=== PATIENT | male | born 1970 | race Caucasian/White ===

== ENCOUNTER → 2017-05-12 | Outpatient (CLI) | payer BC ==
--- NOTE | 2017-05-12 11:35 | EST ---
EXERCISE STRESS DATE OF SERVICE: 05/12/17 AGE: 46 SEX: Male HT: 6' 2" WT: 187 lbs PROTOCOL: Hieu STAGE: IV DURATION OF EXERCISE: 10:30 minutes HEART RATE REST: 64 BLOOD PRESSURE REST: 123/72 MAXIMUM HEART RATE ACHIEVED: 166 MAXIMUM BLOOD PRESSURE: 177/75 85% MPHR: 150 100% MPHR: 176 METS: 12.1 INDICATIONS: Chest pain, dizziness. CLINICAL INFORMATION: Chest pain. Baseline EKG shows sinus rhythm, normal axis, normal intervals. The patient exercised on Hieu protocol for a total of 10 and one half minutes achieving 12 METS, 94% of predicted maximum heart rate without chest pain or diagnostic ST-segment depression. CONCLUSIONS: 1. Excellent exercise tolerance. 2. Negative stress test by EKG criteria. MMODL / IJN: [id number] /
--- NOTE | 2017-05-12 11:46 | US ---
EXAMINATION TYPE: US carotid duplex BILAT DATE OF EXAM: 05/12/2017 COMPARISON: NONE CLINICAL HISTORY: E78.2 Mixed hyperlipidemia, R55 Syncope and collapse. EXAM MEASUREMENTS: RIGHT: Peak Systolic Velocity (PSV) cm/sec ----- Right CCA: 102.7 ----- Right ICA: 93.0 ----- Right ECA: 125.4 ICA/CCA ratio: 0.9 RIGHT: End Diastole cm/sec ----- Right CCA: 31.7 ----- Right ICA: 42.4 ----- Right ECA: 17.4 LEFT: Peak Systolic Velocity (PSV) cm/sec ----- Left CCA: 122.1 ----- Left ICA: 82.7 ----- Left ECA: 75.9 ICA/CCA ratio: 0.7 LEFT: End Diastole cm/sec ----- Left CCA: 36.5 ----- Left ICA: 34.8 ----- Left ECA: 17.8 VERTEBRALS (direction of flow): Right Vertebral: Antegrade Left Vertebral: Antegrade Rhythm: Normal Mild plaque, no significant velocity elevations Intimal thickening is noted on the right. Doppler waveforms are normal. Intimal thickening is noted o n the left. Doppler waveforms are normal. IMPRESSION: 1. Mild atheromatous plaquing without significant flow-limiting stenosis bilateral carotid bifurcatio ns. Criteria for Assigning % of Stenosis / Diameter reduction (Estimation based on the indirect measurements of the internal carotid artery velocities (ICA PSV). 1. Normal (no stenosis)=ICA PSV < 125 cm/s: ratio < 2.0: ICA EDV<40 cm/s. 2. Less than 50% stenosis=ICA PSV < 125 cm/s: ratio < 2.0: ICA EDV<40 cm/s. 3. 50 to 69% stenosis=ICA PSV of 125 to 230 cm/s: ration 2.0 ? 4.0: ICA EDV 40-100 cm/s. 4. Greater than 70% stenosis to near occlusion= ICA PSV > 230 cm/s: ratio > 4.0: ICA EDV > 100 cm/s. 5. Near occlusion= ICA PSV velocities may be low or undetectable: variable ratio and ICA EDV. 6. Total occlusion=unable to detect flow.
== END | disposition home or self-care (01) ==
LOC: RADUSMAIN 09:42
PROVIDERS: ATTEND Family Medicine
DX: I70.90 Unspecified atherosclerosis (principal); R55 Syncope and collapse; R61 Generalized hyperhidrosis; Z72.0 Tobacco use
CPT/HCPCS: 93017; 93880

== ENCOUNTER 2024-09-07 17:45 | Emergency (ER) | payer BC ==
--- NOTE | 2024-09-07 18:21 | ED ---
General Adult HPI - General Source: patient, RN notes reviewed Mode of arrival: ambulatory Limitations: no limitations <Mar Mccormick - Last Filed: 09/07/24 18:19> <Citlaly Powell - Last Filed: 09/08/24 21:28> - General Chief complaint: Dizziness Stated complaint: Sent from urgent care/Nausea/Dizzy Time Seen by Provider: 09/07/24 18:00 - History of Present Illness Initial comments: Quick [id number] male reporting to the emergency room with referral from urgent care for complaints of constant dizziness over the past month with associated nausea. Denies chest pain, difficulty in breathing, lower extremity edema, fevers or chills. Denies headaches. (Mar Mccormick) 53-year-old male presenting with chief complaint of dizziness. Patient reports that dizziness has been ongoing for the last month. Tends to be worse when he gets up in the morning. Also comes on when he does things such as climbing a ladder at work. Does not seem to get worse when he moves his head. It has been more constant for the last week. He admits to nausea, no vomiting. He was seen at urgent care earlier today and advised to come to the ER for further evaluation. He denies any chest pain, difficulty breathing, abdominal pain, fever, chills, URI-like symptoms, headache, vision or hearing changes, numbness, tingling, weakness, recent injury or trauma. (Citlaly Powell) - Related Data Previous Rx's Medication Instructions Recorded Levofloxacin [Levaquin] 500 mg PO DAILY #10 tab 03/15/18 Meclizine [Antivert] 25 mg PO BID PRN #10 tab 09/07/24 Allergies Allergy/AdvReac Type Severity Reaction Status Date / Time No Known Allergies Allergy Verified 09/07/24 18:12 Review of Systems ROS Other: All systems not noted in ROS Statement are negative. <Mar Mccormick - Last Filed: 09/07/24 18:19> ROS Other: All systems not noted in ROS Statement are negative. <Citlaly Powell - Last Filed: 09/08/24 21:28> ROS Statement: Those systems with pertinent positive or pertinent negative responses have been documented in the HPI. Past Medical History Past Medical History: No Reported History History of Any Multi-Drug Resistant Organisms: None Reported Past Surgical History: Tonsillectomy Past Psychological History: No Psychological Hx Reported Past Alcohol Use History: None Reported Past Drug Use History: None Reported <AnnyMar - Last Filed: 09/07/24 18:19> General Exam Limitations: no limitations <Fanny Mccormickoe - Last Filed: 09/07/24 18:19> Limitations: no limitations General appearance: alert, in no apparent distress Head exam: Present: atraumatic, normocephalic, normal inspection Eye exam: Present: normal appearance, PERRL, EOMI. Absent: periorbital swelling Pupils: Present: normal accommodation Neck exam: Present: normal inspection. Absent: meningismus Respiratory exam: Present: normal lung sounds bilaterally. Absent: respiratory distress, wheezes, rales, rhonchi, stridor Cardiovascular Exam: Present: regular rate, normal rhythm, normal heart sounds. Absent: systolic murmur, diastolic murmur, rubs, gallop, clicks Neurological exam: Present: alert, oriented X3 Expanded Patient oriented to: Present: person, place, time Speech: Present: fluid speech Cranial nerves: EOM's Intact: Normal Cerebellar function: Finger to Nose: Normal, Heel to Sloan: Normal Motor strength exam: RUE: 5, LUE: 5, RLE: 5, LLE: 5 Eye Response: (4) open spontaneously Motor Response: (6) obeys commands Verbal Response: (5) oriented Ye[place]y Total: 15 Psychiatric exam: Present: normal affect, normal mood Skin exam: Present: warm, dry, normal color <Citlaly Powell - Last Filed: 09/08/24 21:28> - General Exam Comments Initial Comments: Visual Physical Exam Vital signs reviewed General: Well-appearing, nontoxic, no acute distress. Head: Normocephalic, atraumatic Eyes: PERRLA, EOMI ENT: Airway patent Chest: Nonlabored breathing Skin: No visual rash, normal skin tone Neuro: Alert and oriented 3 Musculoskeletal: No gross abnormalities (Stieler,Mar) Course Vital Signs 09/07/24 09/07/24 09/07/24 18:09 22:53 23:59 Temperature 97.8 F 97.9 F 97.0 F L Pulse Rate 67 55 L 61 Respiratory 18 17 19 Rate Blood Pressure 154/72 142/84 125/74 O2 Sat by Pulse 97 98 100 Oximetry Medical Decision Making <Mar Mccormick - Last Filed: 09/07/24 18:19> - Lab Data Result diagrams: 09/07/24 18:59 09/07/24 18:59 <Citlaly Powell - Last Filed: 09/08/24 21:28> - Medical Decision Making I completed the quick note portion of this chart signed Mar Mccormick PA-C (Mar Mccormick) Was pt. sent in by a medical professional or institution (JOSE M Henderson, MONOGRAM MACHINE OPERATOR, urgent care, hospital, or longterm...) When possible be specific @ -Urgent care Did you speak to anyone other than the patient for history (EMS, parent, family, police, friend...)? What history was obtained from this source @ -No Did you review nursing and triage notes (agree or disagree)? Why? @ -I reviewed and agree with nursing and triage notes Were old charts reviewed (outside hosp., previous admission, EMS record, old EKG, old radiological studies, urgent care reports/EKG's, longterm records)? Report findings @ -No old charts were reviewed Differential Diagnosis (chest pain, altered mental status, abdominal pain women, abdominal pain men, vaginal bleeding, weakness, fever, dyspnea, syncope, headache, dizziness, GI bleed, back pain, seizure, CVA, palpatations, mental health, musculoskeletal)? @ -MDM Differential Dizziness: Benign paroxysmal positional Vertigo, Meniere’s disease, otitis media, acoustic neuroma, vertebrobasilar insufficiency, cerebellar stroke, encephalitis, hypovolemic, arrhythmia, coronary artery syndrome, anemia… this is not meant to be an all-inclusive list EKG interpreted by me (3pts min.). @ -EKG shows sinus bradycardia ventricular rate 57. IA interval 153. QRS 94. QT 374. QTc 369 X-rays interpreted by me (1pt min.). @ -None done CT interpreted by me (1pt min.). @ -Brain CT shows no acute intracranial hemorrhage midline shift or mass effect U/S interpreted by me (1pt. min.). @ -None done What testing was considered but not performed or refused? (CT, X-rays, U/S, labs)? Why? @ -None What meds were considered but not given or refused? Why? @ -None Did you discuss the management of the patient with other professionals (professionals i.e. , PA, MONOGRAM MACHINE OPERATOR, lab, RT, psych nurse, social service liaison, watch assembler, teacher, railroad police officer, case preparer and liner)? Give summary @ -No Was smoking cessation discussed for >3mins.? @ -No Was critical care preformed (if so, how long)? @ -No Were there social determinants of health that impacted care today? How? (Homelessness, low income, unemployed, alcoholism, drug addiction, transportation, low edu. Level, literacy, decrease access to med. care, intermediate, rehab)? @ -No Was there de-escalation of care discussed even if they declined (Discuss DNR or withdrawal of care, Hospice)? DNR status @ -No What co-morbidities impacted this encounter? (DM, HTN, Smoking, COPD, CAD, Cancer, CVA, ARF, Chemo, Hep., AIDS, mental health diagnosis, sleep apnea, morbid obesity)? @ -None Was patient admitted / discharged? Hospital course, mention meds given and route, prescriptions, significant lab abnormalities, going to OR and other pertinent info. @ -53-year-old male presenting with chief complaint of dizziness. Workup was initiated by triage, patient was later placed in room and evaluated by myself. History and physical examination are conducted. GCS 15 with no focal neurological deficits on exam. Lab work is grossly unremarkable. Negative head CT. Vital signs are stable. EKG shows sinus bradycardia with rate of 57. Patient reports improvement after meclizine. He is educated on today's findings. Patient reports that while he has a PCP does not usually go in for an annual checkup, advised that he needs to start seeing his PCP regularly. Follow-up with PCP. Report back to ER with any new or worsening symptoms. Discussed return parameters and answered all questions. Patient conveyed verbal understanding and agreed to the plan. I discussed this case in detail with my attending Dr. Schreiber Undiagnosed new problem with uncertain prognosis? @ -No Drug Therapy requiring intensive monitoring for toxicity (Heparin, Nitro, Insulin, Cardizem)? @ -No Were any procedures done? @ -No Diagnosis/symptom? @ -Dizziness Acute, or Chronic, or Acute on Chronic? @ -Acute Uncomplicated (without systemic symptoms) or Complicated (systemic symptoms)? @ -Uncomplicated Side effects of treatment? @ -No Exacerbation, Progression, or Severe Exacerbation? @ -No Poses a threat to life or bodily function? How? (Chest pain, USA, SD, pneumonia, PE, COPD, DKA, ARF, appy, cholecystitis, CVA, Diverticulitis, Homicidal, Suicidal, threat to staff... and all critical care pts) @ -Unlikely (Citlaly Powell) - Lab Data Lab Results 09/07/24 09/07/24 09/07/24 Range/Units 18:59 18:59 18:59 WBC 9.74 (4.50-10.00) 10*3/uL RBC 4.88 (4.40-5.60) 10*6/uL Hgb 14.8 (13.0-17.0) g/dL Hct 42.7 (39.6-50.0) % MCV 87.5 (80.0-97.0) fL MCH 30.3 (27.0-32.0) pg MCHC 34.7 (32.0-37.0) g/dL Plt Count 253 (140-440) 10*3/uL MPV 10.0 (9.5-12.2) fL Immature Gran % (Auto) 0.2 % Neutrophils % 48.1 % Lymphocytes % 42.2 % Monocytes % 6.4 % Eosinophils % 2.5 % Basophils % 0.6 % Immature Gran # 0.02 (0.00-0.04) 10*3/uL Neutrophils # 4.69 (1.80-7.70) 10*3/uL Lymphocytes # 4.11 (0.90-5.00) 10*3/uL Monocytes # 0.62 (0.20-1.00) 10*3/uL Eosinophils # 0.24 (0.04-0.35) 10*3/uL Basophils # 0.06 (0.00-0.10) 10*3/uL Sodium 137 (137-145) mmol/L Potassium 3.8 (3.5-5.1) mmol/L Chloride 106 (98-107) mmol/L Carbon Dioxide 24 (22-30) mmol/L Anion Gap 7 mmol/L BUN 11 (9-20) mg/dL Creatinine 0.75 (0.66-1.25) mg/dL Est GFR (CKD-EPI)AfAm >90 (>60 ml/min/1.73 sqM) Est GFR (CKD-EPI)NonAf >90 (>60 ml/min/1.73 sqM) Glucose 93 (74-99) mg/dL Calcium 10.1 (8.4-10.2) mg/dL Total Bilirubin 0.7 (0.2-1.3) mg/dL AST 25 (17-59) U/L ALT 15 (4-49) U/L Alkaline Phosphatase 73 (38-126) U/L Total Protein 7.2 (6.3-8.2) g/dL Albumin 4.4 (3.5-5.0) g/dL Lipase 91 (23-300) U/L Influenza Type A (PCR) Not Detected (Not Detectd) Influenza Type B (PCR) Not Detected (Not Detectd) RSV (PCR) Not Detected (Not Detectd) SARS-CoV-2 (PCR) Not Detected (Not Detectd) Disposition <Mar Mccormick - Last Filed: 09/07/24 18:19> Is patient prescribed a controlled substance at d/c from ED?: No Time of Disposition: 23:42 <Citlaly Powell - Last Filed: 09/08/24 21:28> Clinical Impression: Dizziness Disposition: HOME SELF-CARE Condition: Good Instructions (If sedation given, give patient instructions): Dizziness (ED) Additional Instructions: Follow-up with PCP. Report back to ER with any new or worsening symptoms. Prescriptions: Meclizine [Antivert] 25 mg PO BID PRN #10 tab PRN Reason: Vertigo Referrals: Lashae Camp MD [Primary Care Provider] - 1-2 days
[2024-09-07 19:38] LABS: Basophils # (A) 0.06 10*3/uL (0.00-0.10); Basophils % (A) 0.6 %; Eosinophils # (A) 0.24 10*3/uL (0.04-0.35); Eosinophils % (A) 2.5 %; HCT 42.7 % (39.6-50.0); HGB 14.8 g/dL (13.0-17.0); Lymphocytes # (A) 4.11 10*3/uL (0.90-5.00); Lymphocytes % (A) 42.2 %; MCH 30.3 pg (27.0-32.0); MCHC 34.7 g/dL (32.0-37.0); MCV 87.5 fL (80.0-97.0); Monocytes # (A) 0.62 10*3/uL (0.20-1.00); Monocytes % (A) 6.4 %; Neutrophils # (A) 4.69 10*3/uL (1.80-7.70); Neutrophils % (A) 48.1 %; Platelet Count 253 10*3/uL (140-440); RBC 4.88 10*6/uL (4.40-5.60); RDW 12.7 % (11.5-14.5); WBC 9.74 10*3/uL (4.50-10.00)
[2024-09-07 20:09] LABS: ALT 15 U/L (4-49); AST 25 U/L (17-59); African American GFR (CKD) >90 (>60 ml/min/1.73 sqM); Albumin 4.4 g/dL (3.5-5.0); Alkaline Phosphatase 73 U/L (38-126); Anion Gap 7 mmol/L; Blood Urea Nitrogen 11 mg/dL (9-20); Calcium 10.1 mg/dL (8.4-10.2); Carbon Dioxide 24 mmol/L (22-30); Chloride 106 mmol/L (98-107); Glucose 93 mg/dL (74-99); Lipase 91 U/L (23-300); Non-African American GFR(CKD) >90 (>60 ml/min/1.73 sqM); Potassium 3.8 mmol/L (3.5-5.1); Sodium 137 mmol/L (137-145); Total Bilirubin 0.7 mg/dL (0.2-1.3); Total Protein 7.2 g/dL (6.3-8.2)
[2024-09-07 20:30] LABS: Influenza A Not Detected (Not Detectd); Influenza B Not Detected (Not Detectd); RSV Not Detected (Not Detectd)
[2024-09-07] MEDS: MECLIZINE 12.5 MG TAB PO STA (22:53)
--- NOTE | 2024-09-07 23:33 | CT ---
EXAM: CT Head Without Intravenous Contrast CLINICAL HISTORY: ITS.REASON CT Reason: dizziness TECHNIQUE: Axial computed tomography images of the head/brain without intravenous contrast. CTDI is 49.1 mGy and DLP is 1097.4 mGy-cm. This CT exam was performed using one or more of the following dose reduction techniques: automated exposure control, adjustment of the mA and/or kV according to patient size, and/or use of iterative reconstruction technique. COMPARISON: No relevant prior studies available. FINDINGS: No acute intracranial hemorrhage. No midline shift or mass effect. The territorial garrison-white matter differentiation is maintained throughout. The ventricles and sulci are commensurate with age. The visualized orbits appear grossly unremarkable. The calvarium is intact. The visualized paranasal sinuses and mastoid air cells are grossly clear. IMPRESSION: No acute intracranial hemorrhage, midline shift, or mass effect.
[2024-09-08 00:08] VITALS: BP 125/74; PULSE 61; RESP 19; TEMP 97
== END 2024-09-08 00:08 | disposition home or self-care (01) ==
LOC: EC 17:45
DX: R42 Dizziness and giddiness (principal)
CPT/HCPCS: 36415; 70450; 80053; 83690; 85025; 87636; 93005; 99284